=== PATIENT | male | born 1975 | race Caucasian/White ===

== ENCOUNTER 2017-08-27 12:48 | Emergency (ER) | payer BC, OTHER ==
[2017-08-27 13:10] VITALS: BMI 31.5
[2017-08-27] MEDS ORDERED: NS 1000 ML 1,000 ML IV ONE (13:29)
[2017-08-27] MEDS ORDERED: NS 1000 ML 1,000 ML ONE (13:33)
[2017-08-27 13:41] LABS: BASOPHILS # (AUTO) 0.1 X10^3/uL (0.0-0.1); BASOPHILS % (AUTO) 0.4 % (0.2-1.0); EOSINOPHILS % (AUTO) 0.1 % (0.9-2.9); HEMATOCRIT 49.1 % (42.0-54.0); HEMOGLOBIN 17.1 g/dL (13.5-18.0); LYMPHOCYTES # (AUTO) 0.9 X10^3/uL (1.3-2.9); LYMPHOCYTES % (AUTO) 6.2 % (21.0-51.0); MEAN CORPUSCULAR HEMOGLOBIN 29.6 pg (27.0-34.0); MEAN CORPUSCULAR HGB CONC 34.9 g/dL (33.0-35.0); MEAN CORPUSCULAR VOLUME 84.7 fL (80.0-100.0); MEAN PLATELET VOLUME 8.2 fL (7.4-11.0); MONOCYTES # (AUTO) 1.2 x10^3/uL (0.3-0.8); MONOCYTES % (AUTO) 8.4 % (0.0-13.0); NEUTROPHILS # (AUTO) 12.5 x10^3/uL (2.2-4.8); NEUTROPHILS % (AUTO) 84.9 % (42.0-75.0); PLATELET COUNT 288 X10^3/uL (150.0-450.0); RED BLOOD COUNT 5.79 X10^6/uL (4.7-6.0); RED CELL DISTRIBUTION WIDTH 13.1 % (11.6-16.5); WHITE BLOOD COUNT 14.8 X10^3/uL (3.6-10.0)
[2017-08-27 13:47] LABS: BLOOD UREA NITROGEN 15 mg/dL (7-18); CALCIUM 9.4 mg/dL (8.5-10.1); CARBON DIOXIDE 26.4 mmol/L (21-32); CHLORIDE 97 mmol/L (98-107); COR NA(FOR HYPERGLY) 139 mmol/L (136-145); CREATININE 1.66 mg/dL (0.70-1.30); SODIUM 137 mmol/L (136-145); eGFR BLACK RACES 59 (>60); eGFR NON BLACK RACES 49 (>60)
[2017-08-27 13:51] LABS: ALANINE AMINOTRANSFERASE 25 Units/L (12-78); ALBUMIN 3.9 g/dL (3.4-5.0); ALKALINE PHOSPHATASE 61 Units/L (46-116); AMYLASE 46 Units/L (25-115); ASPARTATE AMINO TRANSFERASE 21 Units/L (15-37); LIPASE 203 Units/L (73-393); TOTAL PROTEIN 7.9 g/dL (6.4-8.2)
[2017-08-27] MEDS ORDERED: ZOFRAN INJ 4 MG VIAL IVP ONE (13:52)
[2017-08-27] MEDS ORDERED: TORADOL 30 MG VIAL IVP STA (13:52)
[2017-08-27] MEDS ORDERED: ZOFRAN INJ 4 MG VIAL ONE (13:57)
[2017-08-27] MEDS ORDERED: TORADOL 30 MG VIAL ONE (13:57)
--- NOTE | 2017-08-27 13:57 | DR.ABDMALE ---
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 States he went to see his doctor yesterday and they thought he had a stomach virus and he has been taking Zofran but the pain and diarrhea has gotten worst. States he is having sharp and cramping pill before each bowel movement but denies munira, hematuria, chest pain or SOB. States he saw his doctor in [place] yesterday. Chief Complaint:: PT C/O NAUSEA, ABD PAIN...PT C/O GUERRERO CRAMPS TO HIS LOWER ABD THAT WHEN HE EATS THE DIARRHEA STARTS, PT HAS HAD LOW GRADE FEVER AND DECREASED APPETITE.. Self Treatment fo Chief Complaint: ZOFRAN 8 MG - Reviewed Nurses Notes Review: Yes - Mode of arrival Mode of Arrival: Ambulatory - Timing Onset of Chief Complaint: 08/25/17 Came on: Gradually - Duration Duration: Constant How lon Duration: Days - Location Location: LLQ, Suprapubic - Quality Quality: Cramping, Sharp, Stabbing - Context Onset: Gradually History of: None - Modifying factors Worsening Factors: Other (bowel movement) Improving Factors: Nothing - Associated signs and symptoms Associated Signs and Symptoms: Nausea, Diarrhea PMH - PMH Past Medical History: Yes Past Medical History: GERD, Hypertension Past Medical History Comment: NAYANA,, Past Surgical History: Yes Surgical History: Cholecystectomy - Family History History of Family Medical Conditions: Yes Family Medical History: Hypertension Family Medical History Comment: CVA, - Social History Does patient currently use any type of tobacco product: No Have you used tobacco products in the last 12 months: No Type of Tobacco Use: None Does any household member use tobacco: No Alcohol Use: None Do you use any recreational Drugs:: No Lives With: Spouse Lives Where: Home - infectious screening In the last 2 months have you had wt loss of >10#?: NO Have you had fever, night sweats or hemotysis?: No Have you traveled outside the country in the last 6 months?: No Isolation: Standard ROS - Review of Systems Constitutional: No Symptoms Reported, Weakness, Loss of Appetite. negative: See HPI, Chills, Diaphoresis, Fever, Malaise, Irritable, Fatigue, Other Eyes: No Symptoms Reported. negative: See HPI, Eye Pain, Blurred Vision, Tearing, Discharge, Photophobia, Diplopia, Other ENTM: No Symptoms Reported. negative: See HPI, Ear Pain, Ear Discharge, Pulling on Ears, Hearing Loss, Nose Pain, Nose Discharge, Epistaxis, Nose Congestion, Mouth Pain, Mouth Swelling, Loose Teeth, Drooling, Throat Pain, Throat Swelling, Ear Foreign Body Respiratoy: No Symptoms Reported. negative: See HPI, Productive Cough, Non- Productive Cough, Moist Cough, Dry Cough, Hacking Cough, Barking Cough, Brassy Cough, Orthopnea, Short of Breath, Stridor, Wheezing, Hemoptysis, Other Cardiovascular: No Symptoms Reported. negative: See HPI, Chest Pain, Edema, Palpitations, Syncope, Cyanosis, Skin Mottling, Other Gastrointestinal/Abdominal: Abdominal Pain, Diarrhea, Nausea, Food Intolerance. negative: No Symptoms Reported, See HPI, Constipation, Vomiting, Other Genitourinary: No Symptoms Reported. negative: See HPI, Discharge, Dysuria, Frequency, Hematuria, Pain, Bleeding, Other Neurological: No Symptoms Reported Musculoskeletal: No Symptoms Reported Integumentary: No Symptoms Reported. negative: See HPI, Change in Color, Change in Hair/Nails, Dryness, Lesions, Lumps, Rash, Itching, Wound, Bruises, Juandice, Other Hematologic/Lymphatic: No Symptoms Reported Endocrine: No Symptoms Reported. negative: See HPI, Excessive Sweating, Flushing, Intolerance to Cold, Intolerance to Heat, Increased Hunger, Increased Thirst, Increased Urine, Unexplained Weight Gain, Unexplained Weight Loss, Failure to Thrive, Decreased Appetite, Other Psychiatric: No Symptoms Reported PE - Vital Signs Vital Signs: Temp Pulse Resp BP BP Pulse Ox 08/27/17 15:16 130/64 08/27/17 12:54 98.2 F 95 H 22 153/100 100 - General Limitations: No Limitations. negative: Language Barrier, Altered Mental Status , Physical Limitation, Other General Appearance: Alert, In Distress (moderate) - Head Head Exam: Normal Inspection, Atraumatic, Normocephalic - Eyes Eye exam: Normal Appearance, PERRL, EOMI. negative: Scleral Icterus, Conjunctival Injection, Nystagmus, Miosis, Mydrasis, Periorbital Swelling, Periorbital Tenderness, Other - ENT ENT Exam: Normal Exam, Normal Oropharynx, Normal External Ear Exam, Mucous Membranes Moist, TM's Normal Bilaterally - Neck Neck Exam: Normal Inspection, Full ROM, Trachea Midline. negative: Tenderness, Meningismus, Lymphadenopathy, Thyromegaly, Other - Chest Chest Inspection: Normal Inspection, Symmetric Chest Wall Rise. negative: Tenderness, Rash, Abscess, Other - Respiratory Respiratory Exam: Normal Lung Sounds Bilat Respiratory Exam: Bilateral Clear to Auscultation - Cardiovascular Cardiovascular Exam: Regular Rate, Normal Rhythm, Normal Heart Sounds. negative : Bradycardia, Tachycardia, Irregular Rhythm, Systolic Murmur, Diastolic Murmur , Rubs, Gallop, Clicks, JVD, +S1, +S2, +S3, +S4, Other - Abdominal Exam Abdominal Exam: Normal Inspection, Normal Bowel Sounds, Soft Abdominal Tenderness: LLQ, Epigastrium, Moderate - Rectal Rectal Exam: Deferred - Back Back Exam: Normal Inspection, Full ROM. negative: Tenderness, (R) CVA Tenderness, (L) CVA Tenderness, Muscle Spasm, Paraspinal Tenderness, Vertebral Tenderness, Rashes, (R) Sciatic Notch Tenderness, (L) Sciatic Notch Tendern, (R ) Straight Leg Raise, (L) Straight Leg Raise, Other - Extremeties Extremities Exam: Normal Inspection, Full ROM, Normal Capillary Refill - Exam: Male: Deferred - Neurologic Neurological Exam: Alert, Oriented X3, CN II-XII Intact, Normal Gait, Reflexes Normal - Psychiatric Psychiatric Exam: Normal Affect, Normal Mood - Skin Skin Exam: Warm, Dry, Intact, Normal Color ROR - Labs Reviewed Laboratory Results Reviewed?: Yes (all labs and x-ray results reviewed and discussed with patient and spouse) Result Diagrams: 08/27/17 13:25 08/27/17 13:25 Laboratory: WBC 14.8 X10^3/uL (3.6-10.0) H 08/27/17 13:25 RBC 5.79 X10^6/uL (4.7-6.0) 08/27/17 13:25 Hgb 17.1 g/dL (13.5-18.0) 08/27/17 13:25 Hct 49.1 % (42.0-54.0) 08/27/17 13:25 MCV 84.7 fL (80.0-100.0) 08/27/17 13:25 MCH 29.6 pg (27.0-34.0) 08/27/17 13:25 MCHC 34.9 g/dL (33.0-35.0) 08/27/17 13:25 RDW 13.1 % (11.6-16.5) 08/27/17 13:25 Plt Count 288 X10^3/uL (150.0-450.0) 08/27/17 13:25 MPV 8.2 fL (7.4-11.0) 08/27/17 13:25 Neut % 84.9 % (42.0-75.0) H 08/27/17 13:25 Lymph % 6.2 % (21.0-51.0) L 08/27/17 13:25 [place] % 8.4 % (0.0-13.0) 08/27/17 13:25 Eos % 0.1 % (0.9-2.9) L 08/27/17 13:25 Baso % 0.4 % (0.2-1.0) 08/27/17 13:25 Neut # 12.5 x10^3/uL (2.2-4.8) H 08/27/17 13:25 Lymph # 0.9 X10^3/uL (1.3-2.9) L 08/27/17 13:25 [place] # 1.2 x10^3/uL (0.3-0.8) H 08/27/17 13:25 Eos # 0.0 x10^3/uL (0.0-0.2) 08/27/17 13:25 Baso # 0.1 X10^3/uL (0.0-0.1) 08/27/17 13:25 Absolute Nucleated RBC 0.1 /100WBC 08/27/17 13:25 Sodium 137 mmol/L (136-145) 08/27/17 13:25 Corrected Sodium 139 mmol/L (136-145) 08/27/17 13:25 Potassium 3.1 mmol/L (3.5-5.1) L 08/27/17 13:25 Chloride 97 mmol/L (98-107) L 08/27/17 13:25 Carbon Dioxide 26.4 mmol/L (21-32) 08/27/17 13:25 BUN 15 mg/dL (7-18) 08/27/17 13:25 Creatinine 1.66 mg/dL (0.70-1.30) H 08/27/17 13:25 Est GFR (MDRD) Af Amer 59 (>60) 08/27/17 13:25 Est GFR (MDRD) Non-Af 49 (>60) L 08/27/17 13:25 Glucose 170 mg/dL (65-99) H 08/27/17 13:25 Calcium 9.4 mg/dL (8.5-10.1) 08/27/17 13:25 Corrected Calcium TNP 08/27/17 13:25 Total Bilirubin 0.50 mg/dL (0.2-1.0) 08/27/17 13:25 AST 21 Units/L (15-37) 08/27/17 13:25 ALT 25 Units/L (12-78) 08/27/17 13:25 Alkaline Phosphatase 61 Units/L (46-116) 08/27/17 13:25 Total Protein 7.9 g/dL (6.4-8.2) 08/27/17 13:25 Albumin 3.9 g/dL (3.4-5.0) 08/27/17 13:25 Globulin 4.0 g/dL (2.5-4.5) 08/27/17 13:25 Albumin/Globulin Ratio 1.0 Ratio (1.1-2.1) L 08/27/17 13:25 Amylase 46 Units/L (25-115) 08/27/17 13:25 Lipase 203 Units/L (73-393) 08/27/17 13:25 Specimen Type Clean catch urine 08/27/17 14:15 Urine Color Yellow (YELLOW) 08/27/17 14:15 Urine Appearance Hazy (CLEAR) 08/27/17 14:15 Urine pH 6.0 (5.0 - 8.0) 08/27/17 14:15 Ur Specific [place] 1.015 (1.000-1.030) 08/27/17 14:15 Urine Protein 3+ (NEGATIVE) 08/27/17 14:15 Urine Glucose (UA) 1+ (NEGATIVE) 08/27/17 14:15 Urine Ketones 2+ (NEGATIVE) 08/27/17 14:15 Urine Occult Blood 3+ (NEGATIVE) 08/27/17 14:15 Urine Nitrite Negative (NEGATIVE) 08/27/17 14:15 Urine Bilirubin Negative (NEGATIVE) 08/27/17 14:15 Urine Urobilinogen Normal (NORMAL) 08/27/17 14:15 Ur Leukocyte Esterase 1+ (NEGATIVE) 08/27/17 14:15 Urine RBC 0-2 /HPF (NEGATIVE) 08/27/17 14:15 Urine WBC 0-2 /HPF (NEGATIVE) 08/27/17 14:15 Ur Squamous Epith Cells Rare /HPF (NEGATIVE) 08/27/17 14:15 Urine Bacteria Trace /HPF (NEGATIVE) 08/27/17 14:15 Ur Culture Indicated? No/not indicated 08/27/17 14:15 H. pylori IgG Antibody Negative (NEGATIVE) 08/27/17 13:25 - XRAY XRAY Interpreted by: Radiologist (CT abdomen: Mild pericecal inflammatory changesand prominent right lower quaddrant mesenteric lymph nodes suggest infectious colitis) - Diagnosis Discharge Problem: Gastroenteritis, acute, Hyperglycemia, Hypokalemia Abdominal pain Qualifiers: Abdominal location: left lower quadrant Qualified Code(s): R10.32 - Left lower quadrant pain - Discharge Plan Disposition: 01 HOME, SELF-CARE Condition: Stable Prescriptions: Ketorolac Tromethamine [Toradol Tab] 10 mg PO Q8H PRN #12 tab PRN Reason: Pain Levofloxacin [LEVAQUIN TAB 500 MG *] 500 mg PO DAILY #7 tab - Follow ups/Referrals Follow ups/Referrals: LEO BEDOLLA [Primary Care Provider] - 3 days - Instructions Instructions: Contact Precautions, Viral Gastroenteritis, Adult, Esoi-ox-Quik, Hyperglycemia, Hypokalemia
[2017-08-27 14:20] LABS: BILIRUBIN,URINE NEGATIVE (NEGATIVE); BLOOD/HEMOGLOBIN,URINE 3+ (NEGATIVE); GLUCOSE, URINE 1+ (NEGATIVE); KETONES,URINE 2+ (NEGATIVE); LEUKOCYTE ESTERASE ,URINE 1+ (NEGATIVE); NITRITES,URINE NEGATIVE (NEGATIVE); PROTEIN,URINE 3+ (NEGATIVE); UROBILINOGEN,URINE NORMAL (NORMAL)
[2017-08-27 14:34] LABS: APPEARANCE,URINE HAZY (CLEAR); BACTERIA,URINE TRACE /HPF (NEGATIVE); COLOR,URINE YELLOW (YELLOW); RBC,URINE 0-2 /HPF (NEGATIVE); SQUAMOUS EPITHELIAL CELL,UR RARE /HPF (NEGATIVE)
--- NOTE | 2017-08-27 15:09 | CT ---
HISTORY: Left lower quadrant abdominal pain. Diarrhea. Study: CT abdomen and pelvis without contrast. Comparison: None. Technique: Multiple axial images of the abdomen and pelvis were obtained from the lung bases to the p ubic symphysis without the administration of IV contrast. Findings: There are a couple of benign-appearing thin-walled cysts in both lung bases which are other quintero clear. The gallbladder is surgically absent. The liver, pancreas, spleen, adrenal glands and kid neys are unremarkable in their CT appearance. A well-circumscribed soft tissue density subjacent to t he spleen and superior aspect of the left kidney is thought to reflect a splenule. There are no calci fied stones along the course of either ureter or within the lumen of the incompletely distended urina ry bladder. There is mild pericecal inflammatory stranding with a few prominent right lower quadrant mesenteric lymph nodes observed. The appendix is not definitely visualized. Mild pericolonic inflamma tory changes of the descending and sigmoid colon are noted as well. There is no small bowel dilatatio n. There is no intraperitoneal free air or free fluid. There is no organized fluid collection to sugg est abscess. Posterior disc protrusion is noted at T11-T12. The bony structures are grossly intact. IMPRESSION: Mild pericecal inflammatory changes and prominent right lower quadrant mesenteric lymph nodes without visualization of the appendix. There are mild pericolonic inflammatory changes involvin g the descending and sigmoid colon as well. Combination of findings would suggest an infectious colit is. Acute appendicitis is thought to be less likely although it cannot be entirely excluded given non visualization of the appendix. Reported By:
[2017-08-27 15:17] VITALS: BP 130/64
[2017-08-27] MEDS ORDERED: ROCEPHIN VIAL 1 GM 1 GM in NS 50 ML IV + SPIKE MINIBAG* 50 ML IV ONE (15:27)
[2017-08-27] MEDS ORDERED: K-DUR TAB 20 MEQ PO ONE (15:37)
[2017-08-27] MEDS ORDERED: ROCEPHIN 1 GM IV PREMIX 1 GM/50 ML IV.SOLN. IV ONE (15:37)
[2017-08-27] MEDS ORDERED: K-DUR TAB 20 MEQ PO SCH (16:00)
== END 2017-08-27 16:14 | disposition home or self-care (01) ==
LOC: ER 13:03
DX: K52.89 Other specified noninfective gastroenteritis and colitis (principal); R10.32 Left lower quadrant pain; R73.9 Hyperglycemia, unspecified; E87.6 Hypokalemia
CPT/HCPCS: 36415; 74176; 80053; 81001; 82150; 83690; 85025; 86677; 96365; 96374; 96375; 99283; A4222; J0696; J1885; J2405